=== PATIENT | male | born 1975 | race Caucasian/White ===

== ENCOUNTER 2018-07-30 06:02 | Emergency (ER) | payer BC ==
[~2018-07-30] VITALS: Ht 185.4 cm; Wt 180.7 kg
[2018-07-30 06:03] VITALS: Ht 185.4 cm; Wt 180.7 kg
[2018-07-30] MEDS ORDERED: VANCOMYCIN 1 GM (PMX) 250 ML IVPB STA (06:23)
[2018-07-30] MEDS: PIPER-TAZO 3.375 GM IV (PMX) 100 ML IVPB STA ×2 (06:57→06:58)
--- NOTE | 2018-07-30 07:44 | ERD ---
ER Documentation Chief Complaint Chief Complaint LEFT WOUND CHECK X2WKS; SWELLING, REDNESS; HX OF DM HPI This is a 42-year-old male with a past medical history of kbo-ghoobby-eytzuthcd diabetes mellitus. The patient stated he developed a wound to his left lower extremity that began 2 weeks prior to arrival. He initially stated it was an abrasion. Over the past 2 weeks it has progressed to a wound and this morning he noticed there is purulent drainage. Several days ago the area around the abrasion started to become red swollen and warm. The patient had a previous history of open heart surgery when he was 7 years of age and is followed up by a locomotive electrician on a regular basis. He went to his locomotive electrician 3 days ago for f urther evaluation. They performed a vascular ultrasound that was negative for deep vein thrombosis of his left lower extremity. He has not taken any antibiotics. He said no fevers or shaking or chills. He denies any calf tenderness and no shortness of breath at rest or exertion. ROS All systems reviewed and are negative except as per history of present illness. Allergies Allergies: Coded Allergies: erythromycin base (Verified Allergy, Intermediate, 07/30/18) severe nausea and vomiting. levofloxacin (Verified Allergy, Intermediate, 07/30/18) severe nausea and vomiting PMhx/Soc History of Surgery: Yes (open heart, left knee arthro) Anesthesia Reaction: No Hx Neurological Disorder: No Hx Respiratory Disorders: No Hx Cardiac Disorders: No Hx Psychiatric Problems: No Hx Miscellaneous Medical Probl: No Hx Alcohol Use: No Hx Substance Use: No Hx Tobacco Use: No Smoking Status: Never smoker Physical Exam Vitals Vital Signs Date Temp Pulse Resp B/P (MAP) Pulse Ox O2 O2 Flow FiO2 Time Delivery Rate 07/30/18 97.1 87 19 170/86 100 06:03 (114) Physical Exam Constitutional:Well-developed. Well-nourished. Respiratory: Not using accessory muscles of respiration.Lungs were clear to auscultation bilaterally. No rhonchi. No rales. No wheezing. Cardiovascular: Regular rate regular rhythm.No murmurs. No rubs were appreciated.S1, S2 normal. Distal pulses are palpable 2+ bilaterally. Muscle skeletal: Full range of motion of the upper and lower extremity's. Mild asymmetrical swelling of the left lower extremity compared to the right with negative Homans sign. Skin: No petechia, no purpura. No lesions on the palms or the soles of the feet. No maculopapular rash. Well-circumscribed 1 cm stage I ulcer over the dorsal distal third on the anterior aspect of the left lower extremity with surrounding erythremia warmth with no fluctuance no induration and purulent drainage coming from the ulcer site. No subcutaneous emphysema and pain not out of proportion of physical exam. NEURO: Patient was alert, awake, orientated x3.No facial droop. Gait observed and normal with no ataxia.Speech had regular rate and rhythm. No focal neurological deficits. Result Diagram: 07/30/1843 Results 24 hrs Laboratory Tests Test 07/30/18 06:43 White Blood Count 6.7 10^3/ul Red Blood Count 4.82 10^6/ul Hemoglobin 13.8 g/dl Hematocrit 42.6 % Mean Corpuscular Volume 88.4 fl Mean Corpuscular Hemoglobin 28.6 pg Mean Corpuscular Hemoglobin Concent 32.4 g/dl Red Cell Distribution Width 13.2 % Platelet Count 198 10^3/UL Mean Platelet Volume 11.3 fl Immature Granulocytes % 0.900 % Neutrophils % 66.3 % Lymphocytes % 21.0 % Monocytes % 9.7 % Eosinophils % 1.2 % Basophils % 0.9 % Nucleated Red Blood Cells % 0.0 /100WBC Immature Granulocytes # 0.060 10^3/ul Neutrophils # 4.5 10^3/ul Lymphocytes # 1.4 10^3/ul Monocytes # 0.7 10^3/ul Eosinophils # 0.1 10^3/ul Basophils # 0.1 10^3/ul Nucleated Red Blood Cells # 0.0 10^3/ul Prothrombin Time 12.1 Sec Prothrombin Time Ratio 0.9 INR International Normalized Ratio 0.89 Activated Partial Thromboplast Time 27.7 Sec Current Medications Medications Dose Sig/Sharon Start Time Status Last (Trade) Ordered Route PRN Stop Time Admin Dose Reason Admin Vancomycin 250 ml @ ONCE STAT 07/30/18 HCl 125 mls/hr IVPB 06:23 07/30/18 08:22 Piperacillin 100 ml @ ONCE STAT 07/30/18 DC 07/30/18 Sod/ 200 mls/hr IVPB 06:23 06:58 Tazobactam 07/30/18 06:52 Sod Procedures/MDM The patient presented to the emergency department with a spreading erythematous superficial infection of the skin and subcutaneous tissues. My differential diagnosis included but was not limited to necrotizing fasciitis, lymphangitis, thrombophlebitis, deep vein thrombosis, allergic reaction, neoplasm, gout or abscess. Predisposing factors of the progressive spread of erythema, warmth, pain and tenderness was considered such as lymphedema, tinea pedis, open wounds, prior trauma or surgery, pre-existing skin lesion (furuncle), retained foreign body, injection drug use or vascular or immune compromise. The patient was placed on antibiotics to cover Staphylococcus aureus, including resistant strains such as community-acquired methicillin-resistant S. aureus. Given that the patient has a history of diabetes and poor wound healing I did administer IV antibiotics after blood cultures and wound culture was obtained. The patient received vancomycin and Zosyn as he has a history to levofloxacin and erythromycin. He will be sent home with Bactrim and Keflex. The patient was discharged home in fair condition. They were instructed to return to the emergency department at any time if there was any worsening of their condition. The patient stated they would follow up with their PCP in the next 24-48 hours to initiate a suitable medication regimen under the care of their PCP as well as to allow their PCP to monitor any drug reactions. The patient was discharged home with prescriptions after they gave informed consent to the new medication. They were also fully informed by myself on the adverse effects and adverse drug interactions in order to provide adequate safeguards to prevent possible adverse reactions to medications. Departure Diagnosis: Primary Impression: Diabetic ulcer of lower leg Condition: Serious ALYSA DAVID MD Jul 30, 2018 07:39
[2018-07-30] MEDS ORDERED: SULF1TAB31 PO (07:45)
[2018-07-30] MEDS ORDERED: CEPH-443 PO (07:45)
[2018-07-30 10:29] VITALS: BP 132/79; PULSE 79; RESP 16
== END 2018-07-30 10:30 | disposition home or self-care (01) ==
LOC: E/R 06:02 → EDSEX 06:02 → E/R 10:30
DX: E11.622 Type 2 diabetes mellitus with other skin ulcer (principal); L97.829 Non-pressure chronic ulcer of other part of left lower leg with unspecified severity; M79.89 Other specified soft tissue disorders
CPT/HCPCS: 80053; 85025; 85610; 85730; 87040; 87070; 96374; 96375; 99284; J2543; J3370